=== PATIENT | male | born 1970 | race Caucasian/White ===

== ENCOUNTER 2018-09-22 09:38 | Outpatient (CLI) | payer BC, OTHER | END 2018-09-22 23:59 | disposition home or self-care (01) | LOC: RAD 09:38 | PROVIDERS: ATTEND Family Medicine Sports Medicine | DX: S76.111A Strain of right quadriceps muscle, fascia and tendon, initial encounter (principal); X58.XXXA Exposure to other specified factors, initial encounter; Y93.89 Activity, other specified; Y92.89 Other specified places as the place of occurrence of the external cause; Y99.8 Other external cause status ==

== ENCOUNTER 2018-09-29 09:55 | Day surgery (SDC) | payer OTHER ==
[~2018-09-29] VITALS: Ht 180.3 cm; Wt 187.1 kg
[2018-09-29] MEDS ORDERED: LACTATED RINGERS 1,000 ML IV SCH (10:34)
[2018-09-29] MEDS ORDERED: LISI-170 PO (10:44)
[2018-09-29 10:45] VITALS: BP 119/74
[2018-09-29] MEDS ORDERED: ACET325T14 PO (10:45)
[2018-09-29] MEDS ORDERED: GABAPENTIN 300 MG CAPSULE PO ONE (11:00)
[2018-09-29] MEDS ORDERED: ACETAMINOPHEN 500 MG TABLET PO ONE (11:00)
[2018-09-29 11:45] LABS: ALBUMIN 3.4 g/dL (3.4-5.0); ANION GAP 7 mmol/L (5-15); CHLORIDE 102 mmol/L (98-107)
[2018-09-29] MEDS ORDERED: FENTANYL PF 250 MCG/5ML ONE (12:07)
[2018-09-29] MEDS ORDERED: MIDAZOLAM 1 MG/ML, 2ML ONE (12:07)
[2018-09-29 12:35] LABS: ALANINE AMINOTRANSFERASE 38 U/L (12-78); ALKALINE PHOSPHATASE 80 U/L (45-117); BILIRUBIN,TOTAL 0.9 mg/dL (0.2-1.0); CALCIUM 8.9 mg/dL (8.5-10.1); CREATININE 0.86 mg/dL (0.7-1.3); TOTAL PROTEIN 7.7 g/dL (6.4-8.2)
[2018-09-29] MEDS ORDERED: SUCCINYLCHOLINE 20 MG/ML, 10ML ONE (12:43)
[2018-09-29] MEDS ORDERED: PROPOFOL 10 MG/ML, 20ML ONE (12:43)
[2018-09-29] MEDS ORDERED: SUGAMMADEX 200 MG/2 ML IVPush ONE (12:43)
[2018-09-29] MEDS ORDERED: ROCURONIUM 10 MG/ML,10ML ONE (12:43)
[2018-09-29] MEDS ORDERED: ONDANSETRON 2MG/ML, 2ML ONE (12:43)
[2018-09-29] MEDS ORDERED: CEFAZOLIN 1,000 MG ONE (12:43)
[2018-09-29] MEDS ORDERED: METOCLOPRAMIDE 5 MG/ML, 2ML IV PRN (13:30)
[2018-09-29] MEDS ORDERED: LABETALOL 5MG/ML, 20ML IV PRN (13:30)
[2018-09-29] MEDS ORDERED: FENTANYL PF 100 MCG/2ML IV PRN (13:30)
[2018-09-29] MEDS ORDERED: ONDANSETRON 2MG/ML, 2ML IVPush PRN (13:30)
[2018-09-29] MEDS ORDERED: KETOROLAC 30 MG/1 ML IV PRN (13:30)
[2018-09-29] MEDS ORDERED: hydrALAzine 20 MG/ML, 1ML IV PRN (13:30)
[2018-09-29] MEDS ORDERED: OXYcodone 5 MG/5 ML ORAL.SOL UDC PO PRN (13:30)
[2018-09-29] MEDS ORDERED: MEPERIDINE/PF 25MG/0.5ML IVPush PRN (13:30)
[2018-09-29] MEDS ORDERED: HYDROmorphone 1 MG/ML, 1ML INJ IV PRN (13:30)
[2018-09-29] MEDS ORDERED: ALBUTEROL SULFATE 2.5 MG/3 ML NPPB PRN (13:30)
[2018-09-29] MEDS ORDERED: PROMETHAZINE 25 MG/ML, 1ML IV PRN (13:30)
[2018-09-29] MEDS ORDERED: FENTANYL PF 100 MCG/2ML ONE (14:25)
[2018-09-29] MEDS ORDERED: OXYcodone 5 MG/5 ML ORAL.SOL UDC ONE (14:26)
[2018-09-30] MEDS ORDERED: LISINOPRIL 20 MG TABLET PO SCH (09:00)
== END 2018-09-29 17:15 | disposition home or self-care (01) ==
LOC: OUT 09:55
PROVIDERS: ATTEND Orthopaedic Surgery
DX: S76.111A Strain of right quadriceps muscle, fascia and tendon, initial encounter (principal); E66.01 Morbid (severe) obesity due to excess calories; G47.33 Obstructive sleep apnea (adult) (pediatric); Z68.43 Body mass index [BMI] 50.0-59.9, adult; Z82.49 Family history of ischemic heart disease and other diseases of the circulatory system; V58.4XXA Person boarding or alighting a pick-up truck or van injured in noncollision transport accident, initial encounter; Y93.89 Activity, other specified; Y92.89 Other specified places as the place of occurrence of the external cause; Y99.8 Other external cause status
CPT/HCPCS: 27385; 36415; 64447; 80053; C1713; J0330; J0690; J2250; J2405; J2704; J3010; J7120